=== PATIENT | male | born 1935 | race Caucasian/White ===

== ENCOUNTER 2016-11-02 14:52 | Inpatient (IN) | payer BC, MEDICAID ==
[2016-11-02] VITALS (9 sets, daily range): BP systolic 99–118; BP diastolic 39–69
[~2016-11-02] VITALS: Ht 172.7 cm; Wt 51.7 kg
--- NOTE | 2016-11-02 15:00 | NUR ---
BIB [facility],MORE ALTERED THAN NORMAL,BLOOD SUGAR 170. NOTED LABORED BREATHING, ON OXYGEN MASK SATING 100%. FEBRILE. RESPONSIVE TO PAIN. MD AT BS FOR EVAL. IV ACCESS LEATHER NOVELTY PARTS CUTTER. SAFETY AND COMFORT MEASURES PROVIDED. WILL MONITOR.
--- NOTE | 2016-11-02 15:10 | NUR ---
RT AT FOR ABG.
--- NOTE | 2016-11-02 15:10 | NUR ---
BLOOD CULTURES AND BLOOD DRAWN FOR IV ACCESS.
[2016-11-02 15:17] LABS: BASOPHILS # (AUTO) 0.4 /CMM (0.0-0.2); BASOPHILS % (AUTO) 3.7 % (0.0-2.0); EOSINOPHILS # (AUTO) 0.2 /CMM (0.0-0.7); EOSINOPHILS % (AUTO) 1.6 % (0.0-6.0); HEMATOCRIT 38 % (39-51); HEMOGLOBIN 12.3 g/dL (13.5-17.5); LYMPHOCYTES # (AUTO) 0.8 /CMM (0.8-4.8); LYMPHOCYTES % (AUTO) 8.4 % (20.0-44.0); MEAN CORPUSCULAR HEMOGLOBIN 28 PG (26.0-33.0); MEAN CORPUSCULAR HGB CONC 32 g/dl (31.0-36.0); MEAN CORPUSCULAR VOLUME 87 fL (80-96); MONOCYTES # (AUTO) 0.7 /CMM (0.1-1.30); MONOCYTES % (AUTO) 6.8 % (2.0-12.0); NEUTROPHILS % (AUTO) 79.5 % (43.0-81.0); PLATELET COUNT (AUTO) 206 /CMM (150-450); RDW COEFFICIENT OF VARIATION 14.6 (11.5-15.0); WHITE BLOOD COUNT (AUTO) 10.1 K/uL (4.3-11.0)
[2016-11-02] MEDS ORDERED: TAMS-12 PO (15:17)
[2016-11-02] MEDS ORDERED: MEMA10TA PO (15:17)
[2016-11-02] MEDS ORDERED: ACET325T53 MC (15:17)
[2016-11-02] MEDS ORDERED: NA P133E RC (15:17)
[2016-11-02] MEDS ORDERED: FERR-58 PO (15:17)
[2016-11-02] MEDS ORDERED: POLY15DR12 OP (15:17)
[2016-11-02] MEDS ORDERED: DIVA500T2 PO (15:17)
[2016-11-02] MEDS ORDERED: DOCU-25 PO (15:17)
[2016-11-02] MEDS ORDERED: [UNRECOGNIZED DRUG - OTHER] PO (15:22)
[2016-11-02] MEDS ORDERED: LEVO25TA7 PO (15:22)
[2016-11-02] MEDS ORDERED: PANT40TA2 PO (15:22)
[2016-11-02] MEDS ORDERED: DONE10TA4 PO (15:22)
[2016-11-02 15:24] LABS: ABG BASE EXCESS -6.8 mmol/L; ABG OXYGEN SATURATION 98.1 % (92.0-98.5); ABG PCO2 26.1 mmHg (35.0-45.0); ABG PH 7.414 (7.350-7.450); AaDO2 522.9 mmHg; MetHb 0.4 % (0.0-1.5); O2Hb 97.7 % (94.0-97.0); SITE, ABG Right Radial; VENT MODE, BG 15 LPM VIA NRB
[2016-11-02 15:30] LABS: INR 1.17 (0.87-1.13); PROTHROMBIN TIME 12.3 SECS (9.5-12.7)
[2016-11-02] MEDS ORDERED: IV NS 0.9% 500 ML BAG IV ONE (15:30)
[2016-11-02 15:34] LABS: TROPONIN I < 0.017 ng/mL (0.00-0.056)
[2016-11-02 15:37] LABS: APPEARANCE,URINE Slightly Cloudy (CLEAR); BILIRUBIN,URINE Negative (NEGATIVE); BLOOD, URINE Large Ery/uL (NEGATIVE); KETONES,URINE Negative (NEGATIVE); LEUKOCYTE ESTERASE ,URINE Negative (NEGATIVE); NITRITE, URINE Negative (NEGATIVE); PROTEIN,URINE 30 mg/dl (NEGATIVE); UGLUCOSE Negative (NEGATIVE); UROBILINOGEN,URINE 0.2 EU/dL (0.2)
[2016-11-02 15:38] LABS: COLOR,URINE Dark Yellow (YELLOW)
[2016-11-02 15:39] LABS: ALANINE AMINOTRANSFERASE 26 U/L (12-78); ALBUMIN 2.9 g/dL (3.4-5.0); ALKALINE PHOSPHATASE 124 U/L (46-116); ASPARTATE AMINOTRANSFERASE 29 U/L (15-37); B-TYPE NATRIURETIC PEPTIDE 1529 PG/ML (0-125); BILIRUBIN,DIRECT 0.2 mg/dL (0.0-0.2); BILIRUBIN,TOTAL 0.6 mg/dL (0.2-1.0); CALCIUM, SERUM 9.4 mg/dL (8.5-10.1); CARBON DIOXIDE 26 mmol/L (21-32); CHLORIDE 118 mmol/L (98-107); CREATININE 3.4 mg/dL (0.6-1.3); GLUCOSE 188 mg/dL (74-106); POTASSIUM 3.5 mmol/L (3.5-5.1); SODIUM SERUM 154 mmol/L (136-145); TOTAL PROTEIN, SERUM 8.7 g/dL (6.4-8.2)
[2016-11-02 15:40] LABS: UREA NITROGEN, BLOOD 82 mg/dL (7-18)
--- NOTE | 2016-11-02 15:41 | NUR ---
PT TAKEN TO CT.
--- NOTE | 2016-11-02 15:42 | NUR ---
FC INITIATED. URINE SAMPLE, SENT.
[2016-11-02 15:46] LABS: BACTERIA,URINE Rare /HPF (None Seen); RBC,URINE TOO NUMEROUS TO COUN /HPF (0-2); SQUAMOUS EPITHELIAL CELL,UR Rare /HPF (None Seen); WBC,URINE 0-2 /HPF (0-3)
--- NOTE | 2016-11-02 16:20 | NUR ---
CALLED [employer] ANIMAL ASSISTANT WAS PAGED.
--- NOTE | 2016-11-02 16:21 | NUR ---
DR MCLEOD ON THE PHONE WITH DR COLON.
--- NOTE | 2016-11-02 16:40 | NUR ---
PT NOTED REMOVING OXYGEN AND OTHER LINES. MD MADE AWARE WITH ORDERS RECEIVED FOR SOFT RESTRAINTS PLACED ON LEFT ARM ONLY. SAFETY MEASURES MAINTAINED. WILL MONITOR.
[2016-11-02] MEDS ORDERED: VANCOMYCIN 1 GM in IV D5W 250 ML IV ONE (17:00)
[2016-11-02] MEDS ORDERED: ACETAMINOPHEN 325 MG TABLET PO PRN (17:00)
[2016-11-02] MEDS ORDERED: HYDROCODONE/APAP 5/325MG 1 EACH TABLET PO PRN (17:00)
[2016-11-02] MEDS ORDERED: MAGNESIUM HYDROXIDE 30 ML UDC PO PRN (17:00)
[2016-11-02] MEDS ORDERED: MAG HYDROX/AL HYDROX/SIMETH 30 ML UDC PO PRN (17:00)
[2016-11-02] MEDS ORDERED: CEFTRIAXONE 2 G in IV D5W 100 ML IV ONE (17:00)
[2016-11-02] MEDS ORDERED: ZOLPIDEM TARTRATE 5 MG TABLET PO PRN (17:00)
[2016-11-02] MEDS ORDERED: NA PHOS,M-B/NA PHOS,DI-BA 1 EA ENEMA RC PRN (17:00)
[2016-11-02] MEDS ORDERED: Z GUARD REMEDY 2 OZ OINT TP PRN (17:00)
[2016-11-02] MEDS ORDERED: ONDANSETRON HCL/PF 4 MG/2 ML VIAL IVP PRN (17:00)
--- NOTE | 2016-11-02 17:03 | NUR ---
CALLED [facility], DR COLON WAS PAGED.
--- NOTE | 2016-11-02 17:11 | NUR ---
CALLED DR HARSHA MELARA ON THE PHONE WITH HIM.
[2016-11-02] MEDS ORDERED: DEXAMETHASONE SOD PHOSPHATE 10 MG/ML VIAL IV STA (17:19)
[2016-11-02] MEDS ORDERED: DEXAMETHASONE SOD PHOSPHATE 10 MG/ML VIAL ONE (17:21)
--- NOTE | 2016-11-02 17:30 | NUR ---
REPORT GIVEN TO PAIGE GEORGE FOR ICU ROOM 263.
[2016-11-02] MEDS: IV 1/2NS 1000 ML 1,000 ML IV PRN (18:30)
[2016-11-02] MEDS: DIVALPROEX SODIUM 500 MG TABLET.DR PO SCH (18:46)
[2016-11-02] MEDS: DOCUSATE SODIUM 100 MG CAPSULE PO SCH (18:47)
[2016-11-02] MEDS: MEMANTINE HCL 5 MG TABLET PO SCH (18:49)
--- NOTE | 2016-11-02 19:21 | NUR ---
rn;icu: pt received in bed, responds to painful stimuli. pt pupils remain pinpoint. pt unable to take any po medications at this time, therefore was placed on npo status. orders obtained for midline placement due to poor iv access. f/c draining to gravity. pt receiving iv fluids for elevated sodium/dehydration. left arm soft wrist restraint required as patient is trying to remove lines, despite reorientation. md aware of ct head and chest xray results. pt's lower extremities remain cold and mottled. unable to identify lower extremity pulses via palpation or via doppler. md aware. pending us of lower extremities. aspiration and fall precautions in place. will continue to monitor closely.
[2016-11-02] MEDS ORDERED: FEE PK DOSING 1 MIN EA MC ONE (19:24)
[2016-11-02] MEDS: CEFTRIAXONE 1 G in IV D5W 50 ML IV SCH (20:03)
[2016-11-02] MEDS: DEXAMETHASONE SOD PHOSPHATE 10 MG/ML VIAL IV SCH (20:36)
[2016-11-02] MEDS: DONEPEZIL 5 MG TABLET PO SCH (21:09)
[2016-11-03] VITALS (43 sets, daily range): BP systolic 89–147; BP diastolic 53–117
[2016-11-03] MEDS: DEXAMETHASONE SOD PHOSPHATE 10 MG/ML VIAL IV SCH ×6 (01:09→21:41)
[2016-11-03] MEDS: IV 1/2NS 1000 ML 1,000 ML IV PRN ×2 (04:33→14:34)
--- NOTE | 2016-11-03 04:48 | NUR ---
RN:ICU: PT BECOMING MORE AWAKE AND BEGINING TO OPEN EYES. PT TRYING TO REMOVE LINES AT THIS TIME. PT ABLE TO MOVE ALL EXTREMITIES AT THIS TIME. PT WITH OUT DISTRESS. WILL CONTINUE TO MONITOR CLOSELY.
[2016-11-03 04:53] LABS: HEMATOCRIT 31 % (39-51); HEMOGLOBIN 10.2 g/dL (13.5-17.5); LYMPHOCYTES # (AUTO) 0.3 /CMM (0.8-4.8); LYMPHOCYTES % (AUTO) 2.1 % (20.0-44.0); MEAN CORPUSCULAR HEMOGLOBIN 29 PG (26.0-33.0); MEAN CORPUSCULAR HGB CONC 33 g/dl (31.0-36.0); MEAN CORPUSCULAR VOLUME 88 fL (80-96); MONOCYTES # (AUTO) 0.2 /CMM (0.1-1.30); MONOCYTES % (AUTO) 1.5 % (2.0-12.0); NEUTROPHILS % (AUTO) 96.4 % (43.0-81.0); PLATELET COUNT (AUTO) 167 /CMM (150-450); RED BLOOD CELL COUNT(AUTO) 3.54 MIL/uL (4.5-6.0); WHITE BLOOD COUNT (AUTO) 16.6 K/uL (4.3-11.0)
[2016-11-03] MEDS ORDERED: VANCOMYCIN 0.75 GM in IV D5W 250 ML IV SCH (05:00)
[2016-11-03 05:08] LABS: CARBON DIOXIDE 22 mmol/L (21-32); CHLORIDE 119 mmol/L (98-107); CREATININE 2.7 mg/dL (0.6-1.3); GLUCOSE 209 mg/dL (74-106); MAGNESIUM 2.3 mg/dL (1.8-2.4); POTASSIUM 4.4 mmol/L (3.5-5.1); SODIUM SERUM 153 mmol/L (136-145); UREA NITROGEN, BLOOD 75 mg/dL (7-18)
[2016-11-03 07:04] LABS: LYMPHOCYTES % (MANUAL) 4 % (16-48); MONOCYTES % (MANUAL) 3 % (0-11.0); NEUTROPHILS % (MANUAL) 93 (42-76)
--- NOTE | 2016-11-03 07:18 | NUR ---
RN:ICU: PT ENDORSED IN STABLE CONDITION TO ONCOMING SHIFT. NO ACUTE DISTRESS NOTED. WILL CONTINUE TO MONITOR CLOSELY.
[2016-11-03] MEDS: LEVOTHYROXINE SODIUM 25 MCG TABLET PO SCH (07:30)
[2016-11-03] MEDS: PANTOPRAZOLE 40 MG TABLET.DR PO SCH (07:30)
--- NOTE | 2016-11-03 08:00 | NUR ---
ICU/RN INITIAL NOTES,AM RECEIVED REPORT FORM NIGHT NURSE. PT RESPONDS TO PAINFUL STIMULI, DOES NOT FOLLOW COMMANDS. PINPOINT PUPILS, DOES NOT TRACK. ON SIMPLE MASK 5LITER, TOLERATING WELL, NO DISTRESS AT THIS TIME. SINUS ON TELE. WILKINSON CATH IN PLACE, DRAINING YELLOW URINE. CURRENTLY NPO. PIV AND MIDLINE PATENT AND INTACT, NO S/S OF INFECTION OR INFILTRATION NOTED, IV FLUIDS INFUSING ORDERED. ECHO RESULTS PENDING. ALL NEEDS WILL BE MET, SAFETY MEASURES TAKEN, BED IN LOW POSITION, SIDE RAILS UP, CALL LIGHT WITHIN REACH. WILL CONTINUE CARE.
[2016-11-03] MEDS: DIVALPROEX SODIUM 500 MG TABLET.DR PO SCH ×2 (09:00→17:00)
[2016-11-03] MEDS: TAMSULOSIN 0.4 MG CAP.SR.24H PO SCH (09:00)
[2016-11-03] MEDS: MEMANTINE HCL 5 MG TABLET PO SCH ×2 (09:00→17:00)
[2016-11-03] MEDS: DOCUSATE SODIUM 100 MG CAPSULE PO SCH ×2 (09:00→17:00)
[2016-11-03] MEDS: FERROUS SULFATE (325 MG) 325 MG/TAB TABLET PO SCH (09:23)
--- NOTE | 2016-11-03 11:01 | NUR ---
probation worker contacted patient's son Adrian Elliott ([phone]) who stated that he is the main tool design draftsperson. Per Adrian, Beto Elliott ([phone]/ [phone]) is patient's brother and other tool design draftsperson.
--- NOTE | 2016-11-03 14:30 | NUR ---
ICU/RN: ORDERS RECEIVED FOR NG TUBE INSERTION, ATTEMPTED THREE TIMES. WATER TEAM LEADER ATTEMPTED. UNABLE TO GET NG TUBE IN. NOTIFIED.
--- NOTE | 2016-11-03 15:30 | NUR ---
ICU/RN: PT TAKEN FOR MRI HEAD, QUESTIONNAIRE DONE, PLACED IN CHART. WILL TRANSFER PER ACLS GUIDELINES.
--- NOTE | 2016-11-03 16:30 | NUR ---
ICU/RN: PT RETURNED FROM MRI. PT STABLE, NO DISTRESS, VSS.
--- NOTE | 2016-11-03 18:50 | NUR ---
ICU/RN ENDING NOTES,AM REPORT WILL BE ENDORSED TO NIGHT NURSE FOR CONTINUATION OF CARE. ALL NEEDS MET. PT ON ROOM AIR, NO DISTRESS. SINUS ON TELE. SAFETY MEASURES TAKEN. MRI DONE, REPORT IN CHART.
--- NOTE | 2016-11-03 19:45 | NUR ---
ICU/PRODUCTION WELDING SUPERVISOR RECEIVED REPORT FROM DAY NURSE. PT IS ALERT TO SELF ONLY DOES RESPONDS TO PAINFUL STIMULI. PT CURRENTLY HAS PINPOINT PUPILS, AND DOES NOT TRACK. PT IS CURRENTLY ON ROOM AIR WITH SATURATION 98%, TOLERATING THIS WELL, NO ACUTE DISTRESS SEEN AT THIS TIME. SINUS ON THE MONITOR. WILKINSON CATH DRAINING YELLOW URINE. CURRENTLY NPO. SKIN INTACT, SOME REDNESS TO SACRAL AREA. PT TURNED AND REPOSITIONED FOR COMFORT AND CARE.
[2016-11-03] MEDS: CEFTRIAXONE 1 G in IV D5W 50 ML IV SCH (20:28)
[2016-11-03] MEDS: DONEPEZIL 5 MG TABLET PO SCH (21:58)
--- NOTE | 2016-11-03 22:10 | NUR ---
ICU/RADIO FREQUENCY ENGINEER UNABLE TO GIVEN 2200 MEDICATION. PT DOES NOT HAVE G/TUBE.
[2016-11-04] VITALS (17 sets, daily range): BP systolic 90–144; BP diastolic 62–87
[2016-11-04] MEDS: DEXAMETHASONE SOD PHOSPHATE 10 MG/ML VIAL IV SCH ×3 (00:06→08:56)
--- NOTE | 2016-11-04 02:10 | NUR ---
ICU/RESOURCE ANALYST MD CALLED ABOUT THE RESULT ON CT SCAN. ASKED ABOUT [facility] CONSULT SAID YES [facility] IS TO SEE THE PT. NO NEW ORDERS RECEIVED.
[2016-11-04] MEDS: IV 1/2NS 1000 ML 1,000 ML IV PRN ×3 (02:13→20:41)
--- NOTE | 2016-11-04 03:10 | NUR ---
ICU/MANAGER FILTER PT GIVEN AM CARE, ALONG WITH ORAL CARE. SATURATION IS 98% ON ROOM AIR. PT WAS TURNED AND REPOSITIONED FOR COMFORT AND CARE. NO ACUTE RESPIRATORY DISTRESS SEEN. WILL CONTINUE TO MONITOR THIS PT.
--- NOTE | 2016-11-04 04:44 | NUR ---
ICU/CERAMICS MACHINE OPERATOR AM LABS WERE DRAWN, AWAIT RESULTS.
[2016-11-04 04:45] LABS: CARBON DIOXIDE 22 mmol/L (21-32); CHLORIDE 116 mmol/L (98-107); CREATININE 1.7 mg/dL (0.6-1.3); GLUCOSE 136 mg/dL (74-106); SODIUM SERUM 149 mmol/L (136-145); UREA NITROGEN, BLOOD 64 mg/dL (7-18)
--- NOTE | 2016-11-04 07:20 | NUR ---
ICU INITIAL NOTES RECEIVED PT, AWAKE, A/O XO, RESPONDS TO PAIN STIMULI AND TACTILE STIMULI, PT IS ON RA, SATING 100%, NO S/S OF RESP.DISTRESS OR SOB NOTED AT THIS TIME, PT IS ON BEDSIDE MONITOR SHOWING SR, NO S/S OF CHEST PAIN OR DISCOMFORT NOTED AT THIS TIME, PT IS CURRENTLY NPO AT THIS TIME, PER REPORT UNSUCCESSFUL MULTIPLE ATTEMPTS NGT PLACEMENT, PT HAS F/C DRAINING YELLOW URINE TO GRAVITY, PT HAS FAVIO MIDLINE, RUNNING 1/2NS @ 100ML/HR,C/D/I/PATENT,FLUSHING WELL, LAC # 18G, SL, ALL SAFETY MEASURES IN PLACE AT ALL TIMES, CALL LIGHT WITHIN EASY REACH, WILL MONITOR PT CLOSELY
[2016-11-04] MEDS: LEVOTHYROXINE SODIUM 25 MCG TABLET PO SCH (07:30)
[2016-11-04] MEDS: PANTOPRAZOLE 40 MG TABLET.DR PO SCH (07:30)
[2016-11-04] MEDS: DOCUSATE SODIUM 100 MG CAPSULE PO SCH ×2 (08:12→16:34)
[2016-11-04] MEDS: TAMSULOSIN 0.4 MG CAP.SR.24H PO SCH (08:12)
[2016-11-04] MEDS: FERROUS SULFATE (325 MG) 325 MG/TAB TABLET PO SCH (08:12)
[2016-11-04] MEDS: DIVALPROEX SODIUM 500 MG TABLET.DR PO SCH ×2 (08:12→16:34)
[2016-11-04] MEDS: MEMANTINE HCL 5 MG TABLET PO SCH ×2 (08:13→16:34)
[2016-11-04] MEDS: POLYVINYL ALCOHOL 15 ML BOTTLE OP PRN (08:56)
[2016-11-04 09:17] LABS: BASOPHILS % (AUTO) 0.1 % (0.0-2.0); HEMATOCRIT 31 % (39-51); HEMOGLOBIN 10.1 g/dL (13.5-17.5); LYMPHOCYTES # (AUTO) 0.5 /CMM (0.8-4.8); LYMPHOCYTES % (AUTO) 2.9 % (20.0-44.0); MEAN CORPUSCULAR HEMOGLOBIN 29 PG (26.0-33.0); MEAN CORPUSCULAR HGB CONC 33 g/dl (31.0-36.0); MEAN CORPUSCULAR VOLUME 88 fL (80-96); MONOCYTES # (AUTO) 0.3 /CMM (0.1-1.30); MONOCYTES % (AUTO) 1.6 % (2.0-12.0); NEUTROPHILS # (AUTO) 17.5 /CMM (1.8-8.9); NEUTROPHILS % (AUTO) 95.4 % (43.0-81.0); PLATELET COUNT (AUTO) 176 /CMM (150-450); RDW COEFFICIENT OF VARIATION 15.2 (11.5-15.0); RED BLOOD CELL COUNT(AUTO) 3.49 MIL/uL (4.5-6.0); WHITE BLOOD COUNT (AUTO) 18.3 K/uL (4.3-11.0)
[2016-11-04] MEDS ORDERED: VANCOMYCIN 0.75 GM in IV D5W 250 ML IV SCH (10:00)
--- NOTE | 2016-11-04 10:30 | NUR ---
D/W DR COLON. MRI BRAIN NOTED. RECOMMENDS HOSPICE EVAL DNR/DNI. I DISCUSSED TELEPHONICALLY IN DETAIL WITH PT'S BROTHER AND WITH SON BETTY CORONEL WHO BOTH STATE THAT PT WOULD NOT WANT MACHINES AND HAS NOT BEEN ABLE TO RECOGNIZE FAMILY FOR QUITE SOME TIME. WITNESSED BY RN DOC CHAMPION. INSTRUCTIONS FROM SON FOR HOSPICE EVAL AND DNI/DNR STATUS. SON DOES NOT WISH TO VISIT TODAY
[2016-11-04] MEDS ORDERED: DEXAMETHASONE SOD PHOSPHATE 10 MG/ML VIAL IV SCH (13:00)
--- NOTE | 2016-11-04 13:16 | NUR ---
ICU NOTE RECEIVED ORDERS FOR PT IS BE DOWNGRADED, REPORT GIVEN TO JAMILA IN 3W, PT TAKEN TO 324-2, PT VVS, JIGGER CROWN POUNCING MACHINE OPERATOR AWARE OF PT.
--- NOTE | 2016-11-04 13:30 | NUR ---
MS RN OPENING RECEIVED PATIENT FROM ICU. DNR/DNI. IVF ORDERED AND IN POSITION OF COMFORT. NO S/S DISTRESS AT THIS TIME. MD AWARE OF TRANSFER. CALL LIGHT IN REACH, BED LOWERED AND LOCKED, RAILS UPX3 FOR SAFETY AND WILL ROUND Q2H OR LESS PER NEEDS. PENDING HOSPICE EVAL
--- NOTE | 2016-11-04 16:41 | NUR ---
MS GEORGE NOTES SPOKE WITH DR COLON. OK TO DC ALL PO MEDICATIONS REESE AND IV DECADRON. Addendum: 11/04/16 at 1645 by JAMILA GARRISON RN OK TO DC ALL PO REESE AND PRN PO MEDICATIONS
--- NOTE | 2016-11-04 18:57 | NUR ---
MS RN CLOSING PATIENT NO CHANGES DURING SHIFT. MOUTH MOISTENED AND LUBRICANT. PATIENT POSITIONED IN COMFORT AND OFFLOADED. CARE ENDORSED TO RN FOR VASILE
--- NOTE | 2016-11-04 19:30 | NUR ---
MS/RN PATIENT AWAKE, NON VERBAL, APPEAR COMFORTABLE, NO SIGNS OF DISTRESS NOTED. WILL MONITOR.
[2016-11-04] MEDS: CEFTRIAXONE 1 G in IV D5W 50 ML IV SCH (20:13)
[2016-11-05] MEDS: IV 1/2NS 1000 ML 1,000 ML IV PRN ×2 (06:18→15:20)
--- NOTE | 2016-11-05 06:25 | NUR ---
MS/RN PATIENT IS SLEEPING AT THIS TIME, AROUSABLE, APPEAR COMFORTABLE, NO SIGNS OF DISTRESS NOTED, ALL NEEDS ATTENDED AT THIS TIME. WILL CONTINUE TO MONITOR.
[2016-11-05 06:36] LABS: CALCIUM, SERUM 8.8 mg/dL (8.5-10.1); CARBON DIOXIDE 22 mmol/L (21-32); CHLORIDE 114 mmol/L (98-107); CREATININE 1.7 mg/dL (0.6-1.3); GLUCOSE 70 mg/dL (74-106); POTASSIUM 3.8 mmol/L (3.5-5.1); SODIUM SERUM 148 mmol/L (136-145); UREA NITROGEN, BLOOD 57 mg/dL (7-18)
[2016-11-05 06:41] LABS: BASOPHILS % (AUTO) 0.1 % (0.0-2.0); EOSINOPHILS % (AUTO) 0.1 % (0.0-6.0); HEMATOCRIT 31 % (39-51); HEMOGLOBIN 10.4 g/dL (13.5-17.5); LYMPHOCYTES # (AUTO) 1.2 /CMM (0.8-4.8); LYMPHOCYTES % (AUTO) 6.3 % (20.0-44.0); MEAN CORPUSCULAR HEMOGLOBIN 29 PG (26.0-33.0); MEAN CORPUSCULAR HGB CONC 34 g/dl (31.0-36.0); MEAN CORPUSCULAR VOLUME 86 fL (80-96); MONOCYTES # (AUTO) 0.8 /CMM (0.1-1.30); MONOCYTES % (AUTO) 4.5 % (2.0-12.0); NEUTROPHILS # (AUTO) 16.5 /CMM (1.8-8.9); PLATELET COUNT (AUTO) 200 /CMM (150-450); RDW COEFFICIENT OF VARIATION 15.1 (11.5-15.0); WHITE BLOOD COUNT (AUTO) 18.6 K/uL (4.3-11.0)
--- NOTE | 2016-11-05 07:15 | NUR ---
MS RN OPENING RECEIVED CARE OF PATIENT DNR/DNI. IVF ORDERED AND IN POSITION OF COMFORT. NO S/S DISTRESS AT THIS TIME. CALL LIGHT IN REACH, BED LOWERED AND LOCKED, RAILS UPX3 FOR SAFETY AND WILL ROUND Q2H OR LESS PER NEEDS. PENDING HOSPICE EVAL. TV ON FOR COMFORT. ORAL CARE COMPLETED DUE TO DRY MOUTH
[2016-11-05 08:00] VITALS: BP_SYST 129; BP_DIAS 73; BP_DIAS 76
--- NOTE | 2016-11-05 09:11 | NUR ---
MS RN NOTES MESSAGE TO ROSANNE MANAGER BAKERY TO MAKE SURE AWARE OF NEEDING HOSPICE EVAL FOR PATIENT
--- NOTE | 2016-11-05 09:14 | NUR ---
MS RN NOTES PER ROSANNE CASE MANAGEMENT [facility] WILL EVALUATE PATIENT TODAY.
--- NOTE | 2016-11-05 09:45 | NUR ---
MS RN NOTES MD AWARE HOSPICE WILL EVAL PATIENT TODAY AND OK TO DC IV ANTIBIOTICS
--- NOTE | 2016-11-05 12:40 | NUR ---
ms rn notes notified md sutherland patient hr elevated consistent 140s and highest 155. aware and no new orders
[2016-11-05] MEDS: POLYVINYL ALCOHOL 15 ML BOTTLE OP PRN (15:19)
[2016-11-05 16:00] VITALS: BP 153/91
--- NOTE | 2016-11-05 16:30 | NUR ---
MS RN NOTES NOTIFIED CASE MANAGEMENT WE HAVE NOT HAD A CONSULT FOR HOSPICE. PER ROSANNE [facility] WILL ACCEPT PATIENT AND SON IS GOING TO SIGN PAPERWORK TOMORROW FOR HOSPICE.
--- NOTE | 2016-11-05 17:00 | NUR ---
MS RN NOTES NOTIFIED DR GUZMÁN PATIENT SEEMS TO HAVE NOISY RESPIRATIONS AND UNABLE TO CLEAR SECRETIONS AND NOTHING BEING REMOVED BY SUCTIONING. MD BURKS F.U
[2016-11-05] MEDS ORDERED: IPRATROPIUM NEB FS 0.5 MG/2.5 ML AMPUL.NEB NEB PRN (17:30)
--- NOTE | 2016-11-05 18:46 | NUR ---
MS RN CLOSING PATIENT STABLE NO COMPLICATIONS. PRN MEDICATIONS ORDERED PER NEEDS. PATIENT TURNED Q2H AND HEELS AND ELBOWS OFFLOADED THROUGHOUT THE DAY. CARE WILL BE ENDORSED TO RN FOR VASILE
[2016-11-05 20:00] VITALS: BP 95/64
[2016-11-05 20:40] VITALS: BP 85/54
[2016-11-05 20:45] VITALS: BP 73/48
--- NOTE | 2016-11-05 21:10 | NUR ---
MS/RN NOTES PAGED DR. FLORIAN REGARDING PT'S VITAL SIGNS. AWAITING CALL BACK
--- NOTE | 2016-11-05 21:20 | NUR ---
MS/RN NOTES RECEIVED CALL BACK FROM DR. FLORIAN TO NOTIFY HER OF BP= 85/54 TO LEFT ARM, 73/48 TO LEFT LEG, TEMP OF 100.8F/100.5F AXILLARY, BA=344 MAINTAINED, RR=26 AND 02 SAT 97%. COOLING MEASURES WERE IMPLEMENTED AND PLACED IN [place]. ORDERED LEVAQUIN 750MG IV DAILY STARTING TONIGHT, NS BOLUS 500ML X 2 AND CHANGED IVF TO NS AT 100ML/HR. ALSO ORDERED PRN TYLENOL 650MG PRN Q6H SUPPOSITORY. INFORMED HER THAT AFTER COOLING MEASURES, TEMP WENT DOWN TO 98.9F. ORDERS NOTED AND WILL CARRY OUT.
[2016-11-05] MEDS ORDERED: IV NS 0.9% 1,000 ML BAG IV ONE (21:30)
[2016-11-05] MEDS ORDERED: ACETAMINOPHEN 650 MG/SUPP.RECT RC PRN (21:30)
[2016-11-05] MEDS ORDERED: LEVOFLOXACIN 750 MG /D5W 150ML 750 MG in PREMIX 1 EA IV SCH (21:30)
[2016-11-05] MEDS ORDERED: IV NS 0.9% 1,000 ML BAG IV PRN ×2 (21:30→23:00)
[2016-11-05 21:45] VITALS: BP 98/48
--- NOTE | 2016-11-05 21:45 | NUR ---
MS/RN NOTES BP RECHECKED AFTER FIRST 500ML BOLUS COMPLETE = 98/48. HR=94 HOWEVER PT BEGAN DESATTING LOW 60'S. RAISED HOB AND PLACED ON NONREBREATHER MASK. BREATHING TX IMPLEMENTED AND DEEP SUCTIONED BY RT WITH A LARGE AMOUNT OF YELLOW/WHITE THICK SECRETIONS. WAS PLACED ON HEART MONITOR AND SHOWED SINUS TACH/SVT WITH HEART RATE 158. POST BREATHING TX, AND SUCTIONING, PT O2 SAT WENT UP TO 84% AND EVENTUALLY 100%. RESP RATE=24. DR. FLORIAN MADE AWARE OF SITUATION AND NO NEW ORDERS AT THIS TIME. ONLY TO CONTROL FEVER, SUPPLEMENT O2, SUCTION AND CONTINUE FLUIDS. COSTUME TECHNICIANTONEY MADE AWARE AND AT BEDSIDE FOR ASSISTANCE. WILL CONTINUE TO MONITOR
[2016-11-05] MEDS: IV NS 0.9% 1,000 ML BAG IV PRN (22:51)
[2016-11-05] MEDS ORDERED: LEVOFLOXACIN 750 MG /D5W 150ML 150 ML IV ONE (23:05)
--- NOTE | 2016-11-06 02:58 | NUR ---
MS/RN NOTES PT REMAINS ON NON-REBREATHER, O2 SAT SHOWING 97%. BREATHING IS EVEN AND UNLABORED. DOES NOT APPEAR IN ANY DISTRESS. WILL CONTINUE TO MONITOR
--- NOTE | 2016-11-06 06:50 | NUR ---
MS/RN NOTES PT SITTING UP IN BED, REMAINS ON NON REBREATHER MASK SATTING 100%. BREATHING IS EVEN, PT NONVERBAL. BREATHING TX PROVIDED PRN ALONG WITH SUCTIONING. WILKINSON IN PLACE DRAINING WELL. FAVIO MIDLINE PATENT AND INTACT RUNNING IVF ORDERED. COMFORT MAINTAINED. TURNED/REPOSITIONED Q2H, OFFLOADED EXTREMITIES. MADE PT COMFORTABLE THROUGHOUT SHIFT. HOSPICE EVAL PENDING TODAY. SON TO COME TO SIGN PAPERWORK. BED IN LOW/LOCKED POSITION WITH CALL LIGHT IN REACH. SIDE RAILS UPX3. WILL ENDORSE TO AM SHIFT VASILE.
[2016-11-06 07:19] LABS: EOSINOPHILS % (AUTO) 0.1 % (0.0-6.0); HEMATOCRIT 32 % (39-51); HEMOGLOBIN 10.9 g/dL (13.5-17.5); LYMPHOCYTES # (AUTO) 0.7 /CMM (0.8-4.8); LYMPHOCYTES % (AUTO) 3.7 % (20.0-44.0); MEAN CORPUSCULAR HEMOGLOBIN 29 PG (26.0-33.0); MEAN CORPUSCULAR HGB CONC 34 g/dl (31.0-36.0); MEAN CORPUSCULAR VOLUME 86 fL (80-96); MONOCYTES # (AUTO) 0.6 /CMM (0.1-1.30); MONOCYTES % (AUTO) 3.3 % (2.0-12.0); NEUTROPHILS # (AUTO) 17.6 /CMM (1.8-8.9); NEUTROPHILS % (AUTO) 92.9 % (43.0-81.0); PLATELET COUNT (AUTO) 156 /CMM (150-450); RDW COEFFICIENT OF VARIATION 14.9 (11.5-15.0)
--- NOTE | 2016-11-06 07:20 | NUR ---
RECEIVED PT IN BED, SLEEPING. PT IS CONNECTED TO NON-REBREATHER MASK, NO SIGNS OF RESPIRATORY DISTRESS. FAVIO MIDLINE IS INTACT, RUNNING NS AT 100 ML/HR. PT HAS RESTRAINT ON LEFT WRIST. SAFETY MEASURES ARE IN PLACE. WILL CONTINUE TO MONITOR.
[2016-11-06 07:25] LABS: CALCIUM, SERUM 8.3 mg/dL (8.5-10.1); CARBON DIOXIDE 19 mmol/L (21-32); CHLORIDE 114 mmol/L (98-107); CREATININE 1.8 mg/dL (0.6-1.3); GLUCOSE 69 mg/dL (74-106); POTASSIUM 3.6 mmol/L (3.5-5.1); SODIUM SERUM 149 mmol/L (136-145); UREA NITROGEN, BLOOD 42 mg/dL (7-18)
[2016-11-06 08:00] VITALS: BP 86/62
[2016-11-06] MEDS: IV NS 0.9% 1,000 ML BAG IV PRN (10:55)
[2016-11-06] MEDS ORDERED: LORAZEPAM INJ 2 MG/ML VIAL IV PRN (12:00)
[2016-11-06] MEDS ORDERED: MORPHINE SULFATE PF DRIP 250 MG in IV D5W 240 ML IV PRN (12:00)
--- NOTE | 2016-11-06 12:05 | NUR ---
PATIENT'S HEART RATE ELEVATED 160s. CURRENTLY ON IV NS INFUSING AT 100ML/HR, AFEBRILE. EPISODE OF FEVER LAST NIGHT PER NIGHT RN REPORT. PATIENT IS DNR/DNI STATUS. AWAITING FOR HOSPICE EVAL TODAY. NOTIFIED DR. COLON, ORDERED ATIVAN 1MG IV Q 2 HOUR PRN FOR AGITATION AND MORPHINE DRIP START 4MG PER HOUR AND TITRATE FOR COMFORT. CALLED SPOKE TO SON-ROBLES CORONEL, PER SON HE WILL CALL HOSPICE FIRST REGARDING HIS CONSENT FOR EVAL AND DO NOT START THE DRIP MORPHINE FOR RIGHT NOW, PER SON HE WILL CALL US BACK. CHARGE NURSE MADE AWARE.
[2016-11-06] MEDS ORDERED: KEY,NONCONTROL,TO KEEP IN PYXI 1 EA MC ONE (12:27)
[2016-11-06 16:00] VITALS: BP 140/65
--- NOTE | 2016-11-06 17:12 | NUR ---
PATIENT IS SEEN BY JOHN-DORIS FOR HOSPICE EVAL. PER ILSA, SHE SPOKE TO THE SON-ROBLES AND ROBLES CONSENTED THE EVAL. PATIENT WAS DISCHARGED AND WILL BE ADMITTED TO HOSPICE UNDER INPATIENT LEVEL OF CARE UNDER DR. KELSIE NEWMAN.
[2016-11-07] MEDS ORDERED: LEVOFLOXACIN 750 MG /D5W 150ML 750 MG in PREMIX 1 EA IV SCH (23:00)
== END 2016-11-06 17:42 | disposition hospice, home (50) | DRG 871 ==
LOC: ER 14:54 → ICU 17:04 → MED 11-04 14:08
PROVIDERS: ADMIT Internal Medicine; ATTEND Internal Medicine
PROC: 05H533Z Insertion of Infusion Device into Right Subclavian Vein, Percutaneous Approach (ICD-10-PCS; principal; 2016-11-02)
DX: A41.9 Sepsis, unspecified organism (principal); N17.0 Acute kidney failure with tubular necrosis; E43 Unspecified severe protein-calorie malnutrition; G92 Toxic encephalopathy; I50.33 Acute on chronic diastolic (congestive) heart failure; G93.6 Cerebral edema; E87.0 Hyperosmolality and hypernatremia; I13.0 Hypertensive heart and chronic kidney disease with heart failure and stage 1 through stage 4 chronic kidney disease, or unspecified chronic kidney disease; E87.2 Acidosis; C71.9 Malignant neoplasm of brain, unspecified; Z68.1 Body mass index [BMI] 19.9 or less, adult; R65.20 Severe sepsis without septic shock; D63.8 Anemia in other chronic diseases classified elsewhere; E03.9 Hypothyroidism, unspecified; E86.0 Dehydration; F02.80 Dementia in other diseases classified elsewhere, unspecified severity, without behavioral disturbance, psychotic disturbance, mood disturbance, and anxiety; G30.9 Alzheimer's disease, unspecified; G40.909 Epilepsy, unspecified, not intractable, without status epilepticus; K21.9 Gastro-esophageal reflux disease without esophagitis; R73.9 Hyperglycemia, unspecified; E88.09 Other disorders of plasma-protein metabolism, not elsewhere classified; M62.50 Muscle wasting and atrophy, not elsewhere classified, unspecified site; F41.9 Anxiety disorder, unspecified; F32.9 Major depressive disorder, single episode, unspecified; N40.0 Benign prostatic hyperplasia without lower urinary tract symptoms; I95.9 Hypotension, unspecified; Z51.5 Encounter for palliative care; E86.1 Hypovolemia; N18.9 Chronic kidney disease, unspecified
CPT/HCPCS: 31720; 36415; 36569; 36600; 70450-TC; 70551-TC; 71010-TC; 80048-TC; 80076-TC; 81000-TC; 82803-TC; 83605-TC; 83735-TC; 83880; 84100-TC; 84484-TC; 85025-TC; 85730-TC; 87040-TC; 87081-TC; 87086-TC; 93307-TC; 94799-TC; 95819-TC; A4216; A4606; J0696; J1100; J1956; J2060; J2274; J3370; J3490; J7030; J7040; J7060; Z7610

== ENCOUNTER 2016-11-06 18:03 | Inpatient (IN) | payer OTHER ==
[~2016-11-06] VITALS: Ht 172.7 cm; Wt 51.7 kg
[~2016-11-06 18:03] MED LIST: ACET325T53 MC; DIVA500T2 PO; DOCU-25 PO; DONE10TA4 PO; FERR-58 PO; LEVO25TA7 PO; MEMA10TA PO; NA P133E RC; PANT40TA2 PO; POLY15DR12 OP; TAMS-12 PO; [UNRECOGNIZED DRUG - OTHER] PO
[2016-11-06 18:30] VITALS: BP 86/68
[2016-11-06] MEDS ORDERED: Z GUARD REMEDY 2 OZ OINT TP PRN (18:30)
[2016-11-06] MEDS ORDERED: IPRATROPIUM NEB FS 0.5 MG/2.5 ML AMPUL.NEB NEB PRN (18:30)
[2016-11-06] MEDS ORDERED: ONDANSETRON HCL/PF 4 MG/2 ML VIAL IVP PRN (18:30)
[2016-11-06] MEDS ORDERED: LORAZEPAM INJ 2 MG/ML VIAL IVP PRN (18:30)
[2016-11-06] MEDS ORDERED: ACETAMINOPHEN 650 MG/SUPP.RECT RC PRN (18:30)
--- NOTE | 2016-11-06 18:30 | NUR ---
ADMISSION NOTES 80 YEARS OLD MALE, ADMITTED TO INPATIENT LEVEL OF CARE UNDER [facility] UNDER DR. SEXTON CARE WITH DX OF SEPSIS AND KIDNEY DISORDER. PATIENT IS NON VERBAL, EYES CLOSING. SKIN WARM AND DRY, WILKINSON CATH INTACT, DRAINING TO GRAVITY. FAVIO MIDLINE PATENT AND INTACT, FLUSHES WELL. PLACE ON OXYGEN AT 5LPM VIA NC ORDERED. MADE COMFORTABLE IN BED. WILL CONT TO PROVIDE COMFORT.
--- NOTE | 2016-11-06 19:00 | NUR ---
MORPHINE DRIP 4MG STARTED WITNESSED BY ANOTHER DORIS-STONEY
--- NOTE | 2016-11-06 19:00 | NUR ---
CLINICAL BIOSTATISTICS DIRECTOR OPENING NOTES: PATIENT IN BED, NON VERBAL, WITHDRAWS FROM PAINFUL STIMULI, ON O2 VIA NC, AT 5 LPM. PATIENT IS ON COMFORT MEASURES. FAVIO MIDLINE INTACT AND PATENT, INFUSING WITH MORPHINE 1 MG/1 ML CONCENTRATION RUNNING AT 4 MG/HR. PATIENT APPEARS CALM AND IN NO DISTRESS, BREATHING DEEPLY, UNLABORED, NO SOB NOTED, AT RATE OF 22/MINUTE. WILKINSON CATHETER IN PLACE DRAINING CLEAR ALISSON COLORED URINE. PROVIDED FOR COMFORT AND SAFETY. WILL CONT TO MONITOR.
[2016-11-06] MEDS: MORPHINE SULFATE PF DRIP 250 MG in IV D5W 240 ML IV PRN (19:04)
--- NOTE | 2016-11-06 19:14 | NUR ---
PATIENT IS ON COMFORT CARE HOSPICE. OXYGEN AT 5LPM VIA NC. MORPHINE DRIP INFUSING AT 4MG/HR ORDERED, NO SOB NOTED. COMFORT CARE PROVIDED. ENDORSED TO COMPOSITE LAYUP WORKER RN FOR CONTINUITY OF CARE.
[2016-11-06 20:00] VITALS: BP 74/42
[2016-11-06 21:40] VITALS: BP 74/42
--- NOTE | 2016-11-06 22:12 | NUR ---
RN NOTES: PATIENT TEMP AT 100.4. ADMINISTERED TYLENOL 650 MG SUPPOSITORY PER RECTUM. COOLING MEASURES INITIATED. WILL CONT TO MONITOR.
--- NOTE | 2016-11-07 03:12 | NUR ---
RN NOTES: RECHECKED PT'S TEMP AT 98.2. PATIENT APPEARS CALM, IN NO DISTRESS, BREATHING EVEN AND UNLABORED AT RATE OF 14/MINUTE.
[2016-11-07 05:00] VITALS: BP 67/39
--- NOTE | 2016-11-07 05:10 | NUR ---
RN NOTES: NOTICED PATIENT MORE RESTLESS, RESPIRATIONS AT 22-25 PER MINUTE. INCREASED MORPHINE DRIP RATE TO 5 MG/HR. WILL CONT TO MONITOR FOR PAIN AND DISCOMFORT.
--- NOTE | 2016-11-07 06:51 | NUR ---
FILLER WIPER CLOSING NOTES: PATIENT IN BED, ASLEEP, WITHDRAWS FROM PAIN. BREATHING IRREGULAR, DEEP AT RATE OF 13-16 PER MIN. PATIENT IS A MOUTH BREATHER, AND O2 SATS WERE IN AT 86-90%, PLACED O2 SIMPLE FACE MASK AT 6 LPM. APPEARS CALM AND IN NO DISTRESS AT THIS TIME. AFEBRILE. FAVIO MIDLINE INTACT AND INFUSING WELL WITH MORPHINE DRIP 1MG/1ML CONCENTRATION, TITRATED FOR COMFORT, NOW AT 5 MG/HR. CONTINUED WITH COMFORT MEASURES. MONITORED FOR PAIN AND DISCOMFORT. SKIN PROTECTIVE MEASURES CONTINUED. WILL ENDORSE TO AM RN FOR VASILE.
--- NOTE | 2016-11-07 07:30 | NUR ---
MS/RN Patient received Patient received from [facility]. Continues on morphine drip at 5mg/hr (1:1 concentration). Appears comfortable, respirations 14 per minute.
[2016-11-07 08:00] VITALS: BP 62/28
--- NOTE | 2016-11-07 08:58 | NUR ---
MS/RN Morning care Morning care provided to patient, looks comfortable at this time. Will continue to monitor.
--- NOTE | 2016-11-07 10:54 | NUR ---
MS/RN Turning and repositioning Please see CONSTRUCTION MATERIALS TESTER documentation for turning and repositioning schedule.
--- NOTE | 2016-11-07 12:27 | NUR ---
MS/RN S/B Hospice nurse Seen by hospice nurse - patient appears comfortable on 5mg/hr, continue with current care.
[2016-11-07] MEDS ORDERED: KEY,NONCONTROL,TO KEEP IN PYXI 1 EA MC ONE ×2 (17:00→17:02)
--- NOTE | 2016-11-07 17:00 | NUR ---
MS/RN Pharmacy Pharmacy called for new FISHERIES DIVER morphine bag. Spoke with Anabel, stated the medication would be sent straight up.
[2016-11-07] MEDS: MORPHINE SULFATE PF DRIP 250 MG in IV D5W 240 ML IV PRN (18:06)
--- NOTE | 2016-11-07 18:07 | NUR ---
MS/RN New morphine infusion New morphine infusion bag hung. Waste witnessed by two RN"s
--- NOTE | 2016-11-07 18:47 | NUR ---
MS/RN End note No changes in condition at this time, appears comfortable on morphine 5mg/hr. Has been turned and repositioned every 2-3 hours and mouth care provided. Will endorse to scene shifter.
--- NOTE | 2016-11-07 19:30 | NUR ---
MS/RN RECEIVE PATIENT, HOSPICE STATUS, COMFORT CARE, ON MORPHINE DRIP @ 5 MG/HR, APPEAR COMFORTABLE, NO SIGNS OF DISTRESS NOTED, WILL MONITOR.
[2016-11-07 20:00] VITALS: BP 82/31
--- NOTE | 2016-11-07 21:55 | NUR ---
MS/RN FOUND PATIENT NOT RESPONSIVE TO TACTILE STIMULATION, NOT BREATHING, NO VITAL SIGNS, NO CAROTID/BRACHIAL PULSE NOTED, PUPILS NON REACTIVE, VERY PALE IN COLOR, SKIN STILL WARM TO TOUCH. CHARGE NURSE KERWIN PRONOUNCED PATIENT AT 2155. CHARGE NURSE CALLED HOSPICE AGENCY ABOUT THE .
--- NOTE | 2016-11-07 22:22 | NUR ---
MS/RN CALLED PATIENT'S BROTHER, LUIS CARLOS, AT 22:10 NOTIFIED HIM ABOUT THE OF THE PATIENT. PER LUIS CARLOS, I ALSO NEED TO CALL THE SON, BETTY AT [facility]. NO. [phone]. I WAS ABLE TO SPEAK TO BETTY. PER BETTY HE WILL CALL THIS HOSPITAL TOMORROW FOR ARRANGEMENT. HOSPITAL [facility] PROVIDED TO BETTY.
--- NOTE | 2016-11-07 22:30 | NUR ---
MS/RN CALLED [facility], [phone], SPOKE TO [place]. REFERRAL NO. [id number] WAS RECEIVED.
--- NOTE | 2016-11-07 23:16 | NUR ---
MS/RN RECEIVED A CALL FROM HANS, FROM A [facility]ATION AGENCY WHERE THE PATIENT WAS REGISTERED A DONOR. SUGGESTED TO HANS TO COORDINATE WITH THE HOSPICE AGENCY. PER HANS SHE WILL CALL THE HOSPICE AGENCY.
--- NOTE | 2016-11-07 23:40 | NUR ---
RN NOTES: UNABLE TO GET SANDOVAL FOR MORPHINE ELECTROMEDICAL SERVICE ENGINEER. CHARGE NURSE AWARE. WILL NOTIFY PHARMACY IN THE MORNING.
--- NOTE | 2016-11-07 23:40 | NUR ---
MS/RN ENDORSED TO NEXT RN FOR POST MORTEM CARE.
--- NOTE | 2016-11-07 23:40 | NUR ---
RN NOTES: RECEIVED PT WHO HAS BEEN ALREADY. GOT KIT FOR POST MORTEM CARE. WILKINSON REMOVED AND IV REMOVED. PT CLEANED. ARM WRISTBAND LEFT IN R WRIST. WAS ENDORSED THAT FAMILY HAS BEEN CALLED (LUIS CARLOS HERNÁNDEZ). HOSPICE / [facility] HAS BEEN CALLED WELL. WAITING FOR BODY TO BE PICKED UP.
--- NOTE | 2016-11-07 23:45 | NUR ---
RN NOTES: WAS ABLE TO LOCATE KEYS IN THE NURSING STATION AND WASTE MORPHINE WITH ANOTHER RN, REBECCA. 238 ML WAS WASTED. SEE SHEET WELL.
--- NOTE | 2016-11-08 00:30 | NUR ---
RN NOTES: PT'S BODY HAS BEEN PICKED UP.
== END 2016-11-07 22:00 | disposition expired | DRG 720 ==
LOC: HOSPICE 18:03
PROVIDERS: ADMIT Internal Medicine Interventional Cardiology; ATTEND Internal Medicine
DX: A41.9 Sepsis, unspecified organism (principal); N17.0 Acute kidney failure with tubular necrosis; G93.6 Cerebral edema; E43 Unspecified severe protein-calorie malnutrition; G92 Toxic encephalopathy; Z51.5 Encounter for palliative care; C71.9 Malignant neoplasm of brain, unspecified; I50.33 Acute on chronic diastolic (congestive) heart failure; E87.0 Hyperosmolality and hypernatremia; E88.09 Other disorders of plasma-protein metabolism, not elsewhere classified; F03.90 Unspecified dementia, unspecified severity, without behavioral disturbance, psychotic disturbance, mood disturbance, and anxiety; D63.8 Anemia in other chronic diseases classified elsewhere; E03.9 Hypothyroidism, unspecified; F32.9 Major depressive disorder, single episode, unspecified; F41.9 Anxiety disorder, unspecified; I11.0 Hypertensive heart disease with heart failure; K21.9 Gastro-esophageal reflux disease without esophagitis; N40.0 Benign prostatic hyperplasia without lower urinary tract symptoms; R65.20 Severe sepsis without septic shock; R73.9 Hyperglycemia, unspecified
CPT/HCPCS: J2274; J7060